=== PATIENT | female | born 1995 | race Caucasian/White ===

== ENCOUNTER 2016-11-19 16:12 | Emergency (ER) | payer MEDICAID, OTHER ==
[2016-11-19 16:22] VITALS: BP 133/71
[2016-11-19] MEDS ORDERED: Tetracaine 0.5% 2 ML Bottle EYEBOTH ONE (16:24)
--- NOTE | 2016-11-19 16:24 | EDM.PDOC ---
ED HPI GENERAL MEDICAL PROBLEM - General Chief Complaint: Eye Problems Stated Complaint: possible FB in eye Time Seen by Provider: 11/19/16 16:15 Source of Information: Reports: Patient, Family, RN, RN Notes Reviewed - History of Present Illness INITIAL COMMENTS - FREE TEXT/NARRATIVE: Patient presents to the ED at [facility] with concerns of a right swollen eye. Patient [place] when she felt something get lodged in her eye. She tried wiping her eye with her t-shirt, which seemed to make it worse. The eye then began to become red. She used Visine to see if it would help; she thinks it made her symptoms worse. Patient denies any previous injury or trauma to the right eye. No previous right eye surgeries. Patient denies any vision loss. Blinking is not painful. Eye has been watery. EOMI. Onset: Today Onset Date: 11/19/16 Onset Time: 15:15 - Related Data Allergies Allergy/AdvReac Type Severity Reaction Status Date / Time amoxicillin Allergy Rash Verified 11/19/16 16:25 Home Meds: Home Meds . [No Known Home Meds] 11/19/16 [History] ED ROS GENERAL - Review of Systems Review Of Systems: See Below Constitutional: Denies: Fever, Chills, Weakness HEENT: Reports: Eye Discharge (right eye swelling). Denies: Eye Pain Respiratory: Denies: Shortness of Breath, Cough Cardiovascular: Denies: Chest Pain, Palpitations Skin: Reports: No Symptoms Neurological: Reports: No Symptoms ED EXAM GENERAL W FULL EYE - Physical Exam Exam: See Below Exam Limited By: No Limitations General Appearance: Alert, No Apparent Distress Eye Exam: Bilateral Eye: EOMI, PERRL Eyelids: Bilateral: Normal Appearance Conjunctiva & Sclera: Right: Conjunctival Edema Cornea Exam: Right: Normal Appearance Extraocular Movements: Bilateral: Intact Pupils: Normal Accommodation Pupillary Size: Bilateral: 3 mm Pupillary Reaction: Bilateral: Brisk Respiratory/Chest: No Respiratory Distress, Lungs Clear, Normal Breath Sounds Cardiovascular: Regular Rate, Rhythm Neurological: Alert, Oriented Skin Exam: Warm, Dry, Intact, Normal Color, No Rash ED EYE w/ Add Procedure - Eye Procedure Alcaine Drops Administered: Yes Eye FB Removal: other (No FB noted on exam) Progress: No FB on exam. Patient tolerated exam well. No complications. Course - Vital Signs Last Recorded V/S: Last Vital Signs Temp 37.3 C 11/19/16 16:21 Pulse 96 11/19/16 16:21 Resp 16 11/19/16 16:21 BP 133/71 11/19/16 16:21 Pulse Ox 100 11/19/16 16:21 - Orders/Labs/Meds Orders: Active Orders 24 hr Category Date Time Status predniSONE [Take Home: predniSONE 20 MG, 2 Tab Pack] Med 11/19/16 16:51 Once 3 packet PO ONETIME ONE Meds: Medications Discontinued Medications Generic Name Dose Route Start Last Admin Trade Name [place] PRN Reason Stop Dose Admin Tetracaine 1 ml 11/19/16 16:24 Pontocaine 0.5% Ophth Drops EYEBOTH 11/19/16 16:25 ONETIME ONE Departure - Departure Time of Disposition: 16:48 Disposition: Home, Self-Care 01 Condition: good Clinical Impression: Chemosis of right conjunctiva - Discharge Information Referrals: PCP,Not In Area [Primary Care Provider] - Forms: ED Department Discharge Additional Instructions: 1. Stay well hydrated and rest 2. Use a cold compress several times a day to help with swelling 3. Take Prednisone twice a day until gone 4. Do not rub or irritate the eye 5. See your eye doctor next week when you are able - Problem List Review Problem List Initiated/Reviewed/Updated: Yes - My Orders Last 24 Hours: My Active Orders 11/19/16 16:51 predniSONE [Take Home: predniSONE 20 MG, 2 Tab Pack] 3 packet PO ONETIME ONE - Assessment/Plan Last 24 Hours: My Active Orders 11/19/16 16:51 predniSONE [Take Home: predniSONE 20 MG, 2 Tab Pack] 3 packet PO ONETIME ONE
[2016-11-19] MEDS ORDERED: Take Home: predniSONE 20 MG, 2 Tab Pack PO ONE (16:51)
== END 2016-11-19 17:10 | disposition home or self-care (01) ==
LOC: VM.ED 16:12
DX: H11.421 Conjunctival edema, right eye (principal); Z88.1 Allergy status to other antibiotic agents
CPT/HCPCS: 99282; A9270; 99283-GF